=== PATIENT | female | born 1995 | race Caucasian/White ===

== ENCOUNTER 2025-02-19 05:08 | Inpatient (IN) | payer OTHER ==
[2025-02-19 05:40] VITALS: BMI 33.5
[2025-02-19 06:42] LABS: Fetal Membranes Rupture RUPTURE DETECTED (No Rupture)
[2025-02-19 09:28] LABS: Hematocrit 37.3 % (34.9-44.5); Hemoglobin 12.6 g/dL (12.0-15.5); Mean Corpuscular Hemoglobin 31.0 pg (27.0-33.0); Mean Corpuscular Volume 91.9 fL (81.6-98.3); Platelet Count 300 10x3/uL (150-450); Red Blood Cell (RBC) Count 4.06 10x6/uL (3.90-5.03); White Blood Cell (WBC) Count 15.22 10x3/uL (3.5-10.5)
[2025-02-19 10:00] LABS: Hep B Surf Ag - L&D Non-Reactive S/CO (NonReactive)
[2025-02-19 10:01] LABS: Syphilis Antibody Index 0.04 S/CO (<1.00 Non-Reactive)
[2025-02-19] MEDS ORDERED: Lidocaine 1% (PF) 30 ML VIAL SC PRN (10:30)
[2025-02-19] MEDS ORDERED: Ibuprofen 800 MG TAB PO PRN (10:30)
[2025-02-19] MEDS ORDERED: Oxytocin 30 units/NS 500 ML 500 ML IV SCH ×2 (10:30→22:30)
[2025-02-19] MEDS ORDERED: Penicillin G 2.5 MILL.units 2.5 MILL.UNITS in Premix 1 BAG IVPB SCH ×2 (11:00→16:00)
[2025-02-19] MEDS: Penicillin G Potassium 5 MILL.UNITS in Sodium Chloride 0.9% 100 ML IVPB SCH (12:18)
[2025-02-19] MEDS ORDERED: Milk Of Magnesia 30 ML UDCUP PO PRN (21:59)
[2025-02-19] MEDS ORDERED: HYDROcodone/Acetaminophen 5/325 mg Tablet PO PRN (21:59)
[2025-02-19] MEDS ORDERED: hydrALAZINE 20 MG/ML VIAL SLOW IVP PRN (21:59)
[2025-02-19] MEDS ORDERED: Bisacodyl 10 MG SUPP PR PRN (21:59)
[2025-02-19 22:44] LABS: Analyzer IN Cardio CS NICU; Critical Notified By: CP.PH; RapidComm Collect By CBN; pH (Cord, venous) 7.416 (7.250-7.350)
[2025-02-19 22:48] LABS: Analyzer IN Cardio CS NICU; Critical Notified By: CP.PH; RapidComm Collect By CBN
[2025-02-20] MEDS: Ibuprofen 800 MG TAB PO SCH ×2 (04:06→11:32)
[2025-02-20] MEDS: Ferrous Sulfate 325 MG TAB PO SCH (08:52)
[2025-02-21 08:15] VITALS: BP 127/84; TEMP 97.8
== END 2025-02-21 17:30 | disposition home or self-care (01) | DRG 807 ==
LOC: CSHLD/OP 05:08 → CSHLD 05:41 → CSHPED 02-20 01:08
PROVIDERS: ADMIT Obstetrics & Gynecology; ATTEND Obstetrics & Gynecology
PROC: 10E0XZZ Delivery of Products of Conception, External Approach (ICD-10-PCS; principal; 2025-02-19)
DX: O48.0 Post-term pregnancy (principal); Z37.0 Single live birth; Z3A.40 40 weeks gestation of pregnancy; O42.12 Full-term premature rupture of membranes, onset of labor more than 24 hours following rupture
CPT/HCPCS: 36415; 82805; 84112; 85027; 86780; 86850; 86900; 86901; 87340; 99285; J2540